=== PATIENT | male | born 1975 | race Caucasian/White ===

== ENCOUNTER 2018-01-27 08:03 | Observation (INO) ==
[2018-01-27 08:46] LABS: Basophils # 0.1 10*3/uL (0.0-0.2); Basophils % 1.3 % (0.0-0.8); Eosinophils % 10.6 % (0.00-10.9); Hematocrit 45.6 VOL% (42.0-52.0); Hemoglobin 15.7 GM/DL (14.0-18.0); Immature Granulocytes % 1.3 %; Immature Granulocytes Absolute 0.12 #; Lymphocytes # 1.9 10*3/uL (1.4-4.0); Mean Corpuscular HGB Conc 34.4 GM/DL (32-36); Mean Corpuscular Hemoglobin 31 PG (27-34); Mean Corpuscular Volume 90.5 FL (87-102); Mean Platelet Volume 10.4 FL (9.6-12.0); Monocytes % 10.3 % (1.7-12.7); Neutrophils # 5.2 10*3/uL (1.4-7.4); Neutrophils % 56.5 % (38.7-73.9); Platelet Count 254 T/CUMM (130-400); Red Blood Count 5.04 MC/CUMM (3.8-5.5); Red Cell Distribution Width 13.2 % (9.3-17.3); White Blood Count 9.3 T/CUMM (4-12)
[2018-01-27 09:15] LABS: Albumin 3.9 G/DL (3.4-5.0); Bilirubin,Total 0.4 MG/DL (0.2-1.0); Osmolality,Calculated 278.5 MOS/KG (273-304); Potassium 4.6 MMOL/L (3.5-5.1); Total Protein 8.1 G/DL (6.4-8.3)
[2018-01-27 09:32] LABS: Apearance,Urine CLEAR (Clear); Bilirubin,Urine Negative (Negative); Blood, Urine Negative (Negative); Glucose,Urine (UA) Negative (Negative); Ketones,Urine Negative (Negative); Nitrite,Urine Negative (Negative); Protein,Urine Negative; Urine Color Yellow (Yellow); Urine Specific Gravity 1.018 (1.001-1.035); Urine Urobilinogen < 2.0 EU/DL (0.2-1.0)
[2018-01-27 09:35] LABS: Mucus,Urine Occasional /LPF (Occasional); RBC,Urine 1 /HPF (0-4); WBC,Urine 2 /HPF (0-6)
[2018-01-27 10:51] LABS: Barbiturates Screen,Urine Negative (Negative); Benzodiazepines Screen,Urine Negative (Negative); Cannabinoid Screen,Urine Negative (Negative); Opiate Screen,Urine Negative (Negative); Phencyclidine Screen,Urine Negative (Negative)
[2018-01-28 05:13] LABS: Basophils # 0.1 10*3/uL (0.0-0.2); Basophils % 1.6 % (0.0-0.8); Eosinophils # 0.8 10*3/uL (0.0-0.87); Eosinophils % 10.7 % (0.00-10.9); Hemoglobin 15.1 GM/DL (14.0-18.0); Immature Granulocytes % 1.7 %; Immature Granulocytes Absolute 0.13 #; Lymphocytes # 1.7 10*3/uL (1.4-4.0); Lymphocytes % 22.6 % (21.2-54.2); Mean Corpuscular HGB Conc 34.3 GM/DL (32-36); Mean Corpuscular Hemoglobin 31 PG (27-34); Mean Corpuscular Volume 89.2 FL (87-102); Mean Platelet Volume 9.8 FL (9.6-12.0); Monocytes # 0.8 10*3/uL (0.11-0.8); Neutrophils # 4.1 10*3/uL (1.4-7.4); Neutrophils % 53.4 % (38.7-73.9); Platelet Count 251 T/CUMM (130-400); Red Blood Count 4.93 MC/CUMM (3.8-5.5); Red Cell Distribution Width 12.9 % (9.3-17.3); White Blood Count 7.7 T/CUMM (4-12)
[2018-01-28 05:37] LABS: Calcium 8.6 MG/DL (8.5-10.1); Osmolality,Calculated 276.5 MOS/KG (273-304)
[2018-01-30 10:54] VITALS: BP 134/86
== END 2018-01-30 10:47 | disposition home or self-care (01) ==
LOC: N.EDINP 08:03 → N.ED 08:03 → N.3E 14:07
PROVIDERS: ADMIT Surgery; ATTEND Surgery

== ENCOUNTER 2018-01-31 11:10 | Inpatient (IN) ==
[2018-01-31] MEDS ORDERED: PANTOPRAZOLE 40 MG VIAL IV STA (12:19)
[2018-01-31] MEDS ORDERED: SODIUM CHLORIDE 0.9% 1,000 ML IV STA (12:19)
[2018-01-31] MEDS ORDERED: ALUM/MAG/SIMETH/LIDO VISC 1:1 30 ML BOTTLE PO STA (12:19)
[2018-01-31] MEDS ORDERED: ONDANSETRON 4 MG/2 ML VIAL IV STA ×2 (12:19→16:10)
[2018-01-31] MEDS ORDERED: HYDROmorphone 2 MG/1 ML VIAL IV STA ×2 (12:19→16:10)
[2018-01-31 12:54] LABS: Basophils # 0.1 10*3/uL (0.0-0.2); Basophils % 1.4 % (0.0-0.8); Eosinophils # 0.7 10*3/uL (0.0-0.87); Eosinophils % 10.2 % (0.00-10.9); Hematocrit 43.8 VOL% (42.0-52.0); Hemoglobin 14.7 GM/DL (14.0-18.0); Immature Granulocytes % 1.3 %; Immature Granulocytes Absolute 0.09 #; Lymphocytes # 1.9 10*3/uL (1.4-4.0); Mean Corpuscular HGB Conc 33.6 GM/DL (32-36); Mean Corpuscular Hemoglobin 31 PG (27-34); Mean Corpuscular Volume 90.9 FL (87-102); Mean Platelet Volume 9.8 FL (9.6-12.0); Monocytes # 0.8 10*3/uL (0.11-0.8); Monocytes % 11.4 % (1.7-12.7); Neutrophils # 3.4 10*3/uL (1.4-7.4); Neutrophils % 48.7 % (38.7-73.9); Platelet Count 222 T/CUMM (130-400); Red Blood Count 4.82 MC/CUMM (3.8-5.5)
[2018-01-31 13:12] LABS: Lactic Acid 1.3 MMOL/L (0.4-2.0)
[2018-01-31 13:15] LABS: Alanine Aminotransferase 29 U/L (16-61); Albumin 3.9 G/DL (3.4-5.0); Alkaline Phosphatase 56 U/L (45-117); Amylase 39 U/L (25-115); Aspartate Amino Transferase 25 U/L (0-37); Bilirubin,Total < 0.39 MG/DL (0.2-1.0); Blood Urea Nitrogen 9 MG/DL (7-18); Calcium 8.6 MG/DL (8.5-10.1); Glucose 90 MG/DL (74-106); Osmolality,Calculated 279.3 MOS/KG (273-304); Potassium 3.9 MMOL/L (3.5-5.1); Sodium 141 MMOL/L (136-145); Total Protein 7.7 G/DL (6.4-8.3); Troponin I Only < 0.015 NG/ML (0.00-0.045)
[2018-01-31 14:49] LABS: Apearance,Urine CLEAR (Clear); Bilirubin,Urine Negative (Negative); Blood, Urine Negative (Negative); Glucose,Urine (UA) Negative (Negative); Ketones,Urine Negative (Negative); Mucus,Urine Occasional /LPF (Occasional); Nitrite,Urine Negative (Negative); Protein,Urine Negative; RBC,Urine <1 /HPF (0-4); Squamous Epithelial Cell,Urine Occasional /HPF (0-10); Urine Color Yellow (Yellow); Urine Specific Gravity 1.055 (1.001-1.035); Urine Urobilinogen < 2.0 EU/DL (0.2-1.0); WBC,Urine 2 /HPF (0-6)
[2018-01-31 15:07] LABS: Barbiturates Screen,Urine Negative (Negative); Benzodiazepines Screen,Urine Negative (Negative); Cannabinoid Screen,Urine Negative (Negative); Opiate Screen,Urine Positive (Negative); Phencyclidine Screen,Urine Negative (Negative)
[2018-01-31] MEDS: ENOXAPARIN 40 MG/0.4 ML SYRINGE SUBCUT SCH (17:50)
[2018-01-31] MEDS: DEXTROSE 5% NACL 0.45% 1,000 ML IV SCH (18:01)
[2018-01-31] MEDS: MORPHINE 4 MG/1 ML VIAL IV PRN (20:44)
[2018-01-31] MEDS: ONDANSETRON 4 MG/2 ML VIAL IV PRN (20:44)
[2018-01-31] MEDS: DIVALPROEX 500 MG TABLET PO SCH (20:44)
[2018-02-01] MEDS: DEXTROSE 5% NACL 0.45% 1,000 ML IV SCH (02:05)
[2018-02-01 05:14] LABS: Basophils # 0.1 10*3/uL (0.0-0.2); Basophils % 1.6 % (0.0-0.8); Eosinophils # 0.6 10*3/uL (0.0-0.87); Eosinophils % 9.1 % (0.00-10.9); Hematocrit 41.4 VOL% (42.0-52.0); Hemoglobin 14.1 GM/DL (14.0-18.0); Immature Granulocytes % 0.9 %; Immature Granulocytes Absolute 0.06 #; Lymphocytes % 29.4 % (21.2-54.2); Mean Corpuscular HGB Conc 34.1 GM/DL (32-36); Mean Corpuscular Hemoglobin 31 PG (27-34); Mean Corpuscular Volume 90.2 FL (87-102); Mean Platelet Volume 9.7 FL (9.6-12.0); Monocytes # 0.6 10*3/uL (0.11-0.8); Neutrophils # 3.4 10*3/uL (1.4-7.4); Platelet Count 222 T/CUMM (130-400); Red Blood Count 4.59 MC/CUMM (3.8-5.5); White Blood Count 6.8 T/CUMM (4-12)
[2018-02-01 06:01] LABS: Calcium 8.3 MG/DL (8.5-10.1); Potassium 4.3 MMOL/L (3.5-5.1)
[2018-02-01] MEDS: DIVALPROEX 250 MG TABLET PO SCH (08:19)
[2018-02-01] MEDS: SERTRALINE 100 MG TABLET PO SCH (08:19)
[2018-02-01] MEDS: PANTOPRAZOLE 40 MG VIAL IV SCH (08:19)
[2018-02-01] MEDS: ATORVASTATIN 80 MG TABLET PO SCH (08:19)
[2018-02-01] MEDS: MORPHINE 4 MG/1 ML VIAL IV PRN ×2 (08:20→20:46)
[2018-02-01] MEDS: ONDANSETRON 4 MG/2 ML VIAL IV PRN ×2 (08:20→20:47)
[2018-02-01] MEDS: ENOXAPARIN 40 MG/0.4 ML SYRINGE SUBCUT SCH (16:19)
[2018-02-01] MEDS: DIVALPROEX 500 MG TABLET PO SCH (20:46)
[2018-02-01] MEDS ORDERED: LORazepam 1 MG TABLET PO PRN (22:28)
[2018-02-01] MEDS ORDERED: LORazepam 2 MG/1 ML VIAL IV ONE (23:46)
[2018-02-01] MEDS ORDERED: LORazepam 2 MG/1 ML VIAL ONE (23:52)
[2018-02-02] MEDS: DEXTROSE 5% NACL 0.45% 1,000 ML IV SCH ×4 (00:05→20:47)
[2018-02-02] MEDS: ONDANSETRON 4 MG/2 ML VIAL IV PRN ×2 (00:06→20:48)
[2018-02-02] MEDS: SERTRALINE 100 MG TABLET PO SCH (08:06)
[2018-02-02] MEDS: PANTOPRAZOLE 40 MG VIAL IV SCH (08:06)
[2018-02-02] MEDS: DIVALPROEX 250 MG TABLET PO SCH (08:06)
[2018-02-02] MEDS: ATORVASTATIN 80 MG TABLET PO SCH (08:06)
[2018-02-02] MEDS ORDERED: MORPHINE 4 MG/1 ML VIAL IV PRN (10:25)
[2018-02-02] MEDS: ENOXAPARIN 40 MG/0.4 ML SYRINGE SUBCUT SCH (16:25)
[2018-02-02] MEDS: DIVALPROEX 500 MG TABLET PO SCH (20:47)
[2018-02-03] MEDS: DEXTROSE 5% NACL 0.45% 1,000 ML IV SCH ×2 (04:38→16:41)
[2018-02-03] MEDS ORDERED: fentaNYL 100 MCG/2 ML VIAL ONE (11:08)
[2018-02-03] MEDS ORDERED: LIDOCAINE 100 MG/5 ML SYRINGE ONE (12:00)
[2018-02-03] MEDS ORDERED: PROPOFOL 200 MG/20 ML VIAL IV ONE (12:00)
[2018-02-03] MEDS: PANTOPRAZOLE 40 MG VIAL IV SCH (12:52)
[2018-02-03] MEDS: SERTRALINE 100 MG TABLET PO SCH (12:53)
[2018-02-03] MEDS: DIVALPROEX 250 MG TABLET PO SCH (12:53)
[2018-02-03] MEDS: ATORVASTATIN 80 MG TABLET PO SCH ×2 (12:58→20:12)
[2018-02-03] MEDS: ENOXAPARIN 40 MG/0.4 ML SYRINGE SUBCUT SCH (16:40)
[2018-02-03] MEDS: ONDANSETRON 4 MG/2 ML VIAL IV PRN (19:50)
[2018-02-03] MEDS: DIVALPROEX 500 MG TABLET PO SCH (20:11)
[2018-02-03] MEDS ORDERED: PROMETHAZINE 25 MG/1 ML VIAL IM ONE (22:30)
[2018-02-04] MEDS: DEXTROSE 5% NACL 0.45% 1,000 ML IV SCH ×3 (01:04→17:51)
[2018-02-04] MEDS: DIVALPROEX 250 MG TABLET PO SCH (09:45)
[2018-02-04] MEDS: SERTRALINE 100 MG TABLET PO SCH (09:46)
[2018-02-04] MEDS: PANTOPRAZOLE 40 MG VIAL IV SCH (09:47)
[2018-02-04] MEDS ORDERED: LOPERAMIDE 2 MG CAPSULE PO PRN (10:17)
[2018-02-04] MEDS: ENOXAPARIN 40 MG/0.4 ML SYRINGE SUBCUT SCH (17:35)
[2018-02-04] MEDS: METOCLOPRAMIDE 10 MG/2 ML VIAL IV SCH (17:35)
[2018-02-04] MEDS: DIVALPROEX 500 MG TABLET PO SCH (20:53)
[2018-02-04] MEDS: ATORVASTATIN 80 MG TABLET PO SCH (20:53)
[2018-02-05] MEDS: METOCLOPRAMIDE 10 MG/2 ML VIAL IV SCH ×2 (02:04→07:12)
[2018-02-05] MEDS: DEXTROSE 5% NACL 0.45% 1,000 ML IV SCH ×2 (02:05→09:26)
[2018-02-05 05:25] LABS: Basophils # 0.1 10*3/uL (0.0-0.2); Basophils % 1.4 % (0.0-0.8); Eosinophils # 0.9 10*3/uL (0.0-0.87); Eosinophils % 10.8 % (0.00-10.9); Hematocrit 43.3 VOL% (42.0-52.0); Hemoglobin 14.7 GM/DL (14.0-18.0); Immature Granulocytes % 1.2 %; Lymphocytes # 2.7 10*3/uL (1.4-4.0); Lymphocytes % 32.3 % (21.2-54.2); Mean Corpuscular HGB Conc 33.9 GM/DL (32-36); Mean Corpuscular Hemoglobin 31 PG (27-34); Mean Corpuscular Volume 89.8 FL (87-102); Mean Platelet Volume 10.1 FL (9.6-12.0); Monocytes % 11.8 % (1.7-12.7); Neutrophils # 3.5 10*3/uL (1.4-7.4); Neutrophils % 42.5 % (38.7-73.9); Platelet Count 263 T/CUMM (130-400); Red Blood Count 4.82 MC/CUMM (3.8-5.5); Red Cell Distribution Width 12.9 % (9.3-17.3); White Blood Count 8.3 T/CUMM (4-12)
[2018-02-05 06:01] LABS: Calcium 8.4 MG/DL (8.5-10.1)
[2018-02-05 07:20] VITALS: BP 137/82
[2018-02-05] MEDS: SERTRALINE 100 MG TABLET PO SCH (09:21)
[2018-02-05] MEDS: PANTOPRAZOLE 40 MG VIAL IV SCH (09:21)
[2018-02-05] MEDS: DIVALPROEX 250 MG TABLET PO SCH (09:22)
[2018-02-05] MEDS ORDERED: METOCLOPRAMIDE 10 MG TABLET PO SCH (11:30)
== END 2018-02-05 14:42 | disposition home or self-care (01) | DRG 392 ==
LOC: N.ED 11:10 → N.EDINP 16:52 → SUATTDRO 16:52 → N.5E 17:29
PROVIDERS: ADMIT Internal Medicine Geriatric Medicine; ATTEND Internal Medicine

== ENCOUNTER 2018-02-20 15:54 | Inpatient (IN) ==
[2018-02-20] MEDS ORDERED: ONDANSETRON 4 MG/2 ML VIAL IV STA (17:16)
[2018-02-20] MEDS ORDERED: HYDROmorphone 2 MG/1 ML VIAL IV STA (17:16)
[2018-02-20] MEDS ORDERED: PANTOPRAZOLE 40 MG VIAL IV STA (17:16)
[2018-02-20 17:39] LABS: Basophils # 0.1 10*3/uL (0.0-0.2); Basophils % 1.1 % (0.0-0.8); Eosinophils # 0.9 10*3/uL (0.0-0.87); Eosinophils % 8.5 % (0.00-10.9); Hematocrit 41.8 VOL% (42.0-52.0); Hemoglobin 14.2 GM/DL (14.0-18.0); Immature Granulocytes % 0.9 %; Immature Granulocytes Absolute 0.09 #; Lymphocytes # 1.8 10*3/uL (1.4-4.0); Lymphocytes % 17.6 % (21.2-54.2); Mean Corpuscular Hemoglobin 31 PG (27-34); Mean Corpuscular Volume 91.9 FL (87-102); Mean Platelet Volume 10.8 FL (9.6-12.0); Monocytes # 1.1 10*3/uL (0.11-0.8); Monocytes % 10.9 % (1.7-12.7); Neutrophils # 6.4 10*3/uL (1.4-7.4); Platelet Count 225 T/CUMM (130-400); Red Blood Count 4.55 MC/CUMM (3.8-5.5); Red Cell Distribution Width 13.1 % (9.3-17.3); White Blood Count 10.4 T/CUMM (4-12)
[2018-02-20 17:54] LABS: Apearance,Urine CLEAR (Clear); Bilirubin,Urine Negative (Negative); Blood, Urine Negative (Negative); Glucose,Urine (UA) Negative (Negative); Ketones,Urine Negative (Negative); Mucus,Urine Occasional /LPF (Occasional); Nitrite,Urine Negative (Negative); Protein,Urine Negative; RBC,Urine 2 /HPF (0-4); Urine Color Yellow (Yellow); Urine Specific Gravity 1.011 (1.001-1.035); Urine Urobilinogen < 2.0 EU/DL (0.2-1.0); WBC,Urine 1 /HPF (0-6)
[2018-02-20] MEDS ORDERED: MORPHINE 4 MG/1 ML VIAL IV STA (18:22)
[2018-02-20 18:47] LABS: Alanine Aminotransferase 26 U/L (16-61); Albumin 3.8 G/DL (3.4-5.0); Alkaline Phosphatase 57 U/L (45-117); Amylase 47 U/L (25-115); Aspartate Amino Transferase 16 U/L (0-37); Bilirubin,Total < 0.39 MG/DL (0.2-1.0); Blood Urea Nitrogen 8 MG/DL (7-18); Calcium 8.8 MG/DL (8.5-10.1); Glucose 111 MG/DL (74-106); Osmolality,Calculated 277.4 MOS/KG (273-304); Potassium 3.8 MMOL/L (3.5-5.1); Sodium 140 MMOL/L (136-145); Total Protein 7.6 G/DL (6.4-8.3); Troponin I Only < 0.015 NG/ML (0.00-0.045)
[2018-02-20 18:54] LABS: Lactic Acid 1.2 MMOL/L (0.4-2.0)
[2018-02-20] MEDS ORDERED: ACETAMINOPHEN 325 MG TABLET PO PRN (21:25)
[2018-02-20] MEDS ORDERED: ONDANSETRON 4 MG/2 ML VIAL IV PRN (21:25)
[2018-02-20] MEDS: METOCLOPRAMIDE 10 MG TABLET PO SCH (21:57)
[2018-02-20] MEDS: ATORVASTATIN 80 MG TABLET PO SCH (21:57)
[2018-02-20] MEDS: DIVALPROEX 250 MG TABLET PO SCH (21:57)
[2018-02-20] MEDS: SODIUM CHLORIDE 0.9% 1,000 ML IV SCH (21:59)
[2018-02-20] MEDS: metroNIDAZOLE INJ 500 MG in PREMIX 1 EACH IV SCH (22:02)
[2018-02-20] MEDS: LEVOFLOXACIN INJ 500 MG in PREMIX 1 EACH IV SCH (23:47)
[2018-02-21 04:57] LABS: Basophils # 0.1 10*3/uL (0.0-0.2); Basophils % 1.2 % (0.0-0.8); Eosinophils # 0.9 10*3/uL (0.0-0.87); Eosinophils % 10.5 % (0.00-10.9); Hematocrit 39.7 VOL% (42.0-52.0); Hemoglobin 13.6 GM/DL (14.0-18.0); Immature Granulocytes % 1.5 %; Immature Granulocytes Absolute 0.13 #; Mean Corpuscular HGB Conc 34.3 GM/DL (32-36); Mean Corpuscular Hemoglobin 31 PG (27-34); Mean Platelet Volume 10.8 FL (9.6-12.0); Monocytes # 0.9 10*3/uL (0.11-0.8); Monocytes % 10.7 % (1.7-12.7); Neutrophils # 4.4 10*3/uL (1.4-7.4); Neutrophils % 52.1 % (38.7-73.9); Platelet Count 199 T/CUMM (130-400); Red Blood Count 4.41 MC/CUMM (3.8-5.5); Red Cell Distribution Width 13.2 % (9.3-17.3); White Blood Count 8.5 T/CUMM (4-12)
[2018-02-21] MEDS: metroNIDAZOLE INJ 500 MG in PREMIX 1 EACH IV SCH ×3 (05:02→21:27)
[2018-02-21 05:04] LABS: PT Patient Result 10.3 SECS
[2018-02-21 05:25] LABS: Calcium 8.2 MG/DL (8.5-10.1); Osmolality,Calculated 279.1 MOS/KG (273-304); Potassium 3.5 MMOL/L (3.5-5.1)
[2018-02-21] MEDS: SERTRALINE 50 MG TABLET PO SCH (09:29)
[2018-02-21] MEDS: PANTOPRAZOLE 40 MG TABLET PO SCH (09:30)
[2018-02-21] MEDS: METOCLOPRAMIDE 10 MG TABLET PO SCH ×4 (09:30→20:40)
[2018-02-21] MEDS: DIVALPROEX 250 MG TABLET PO SCH ×2 (09:30→20:40)
[2018-02-21] MEDS: SODIUM CHLORIDE 0.9% 1,000 ML IV SCH ×2 (09:30→17:29)
[2018-02-21] MEDS: POLYETHYLENE GLYCOL POWDER 17 GM PACK PO SCH ×3 (13:32→20:38)
[2018-02-21] MEDS: HYDROCORTISONE 25 MG SUPP RECTAL SCH ×2 (17:31→20:41)
[2018-02-21] MEDS: ATORVASTATIN 80 MG TABLET PO SCH (20:40)
[2018-02-22] MEDS: LEVOFLOXACIN INJ 500 MG in PREMIX 1 EACH IV SCH ×2 (00:21→23:25)
[2018-02-22] MEDS: SODIUM CHLORIDE 0.9% 1,000 ML IV SCH ×3 (00:21→23:26)
[2018-02-22 05:33] LABS: Basophils # 0.1 10*3/uL (0.0-0.2); Basophils % 1.2 % (0.0-0.8); Eosinophils # 0.9 10*3/uL (0.0-0.87); Hematocrit 38.9 VOL% (42.0-52.0); Hemoglobin 13.3 GM/DL (14.0-18.0); Immature Granulocytes % 1.2 %; Lymphocytes # 1.9 10*3/uL (1.4-4.0); Lymphocytes % 22.7 % (21.2-54.2); Mean Corpuscular HGB Conc 34.2 GM/DL (32-36); Mean Corpuscular Hemoglobin 31 PG (27-34); Mean Corpuscular Volume 89.8 FL (87-102); Mean Platelet Volume 10.4 FL (9.6-12.0); Monocytes # 0.7 10*3/uL (0.11-0.8); Monocytes % 8.9 % (1.7-12.7); Neutrophils # 4.6 10*3/uL (1.4-7.4); Platelet Count 219 T/CUMM (130-400); Red Blood Count 4.33 MC/CUMM (3.8-5.5); Red Cell Distribution Width 12.7 % (9.3-17.3); White Blood Count 8.3 T/CUMM (4-12)
[2018-02-22] MEDS: metroNIDAZOLE INJ 500 MG in PREMIX 1 EACH IV SCH ×3 (05:49→21:16)
[2018-02-22 06:35] LABS: Eosinophils 12 % (0-10); Lymphocytes 18 % (20-55); Segmented Neutrophils 67 % (50-85); Total Cells Counted 100
[2018-02-22 06:36] LABS: Hypochromasia Slight; Microcytosis 1+; Platelet Estimate Normal
[2018-02-22] MEDS: POLYETHYLENE GLYCOL POWDER 17 GM PACK PO SCH ×4 (09:07→21:16)
[2018-02-22] MEDS: SERTRALINE 50 MG TABLET PO SCH (09:08)
[2018-02-22] MEDS: PANTOPRAZOLE 40 MG TABLET PO SCH (09:09)
[2018-02-22] MEDS: HYDROCORTISONE 25 MG SUPP RECTAL SCH ×3 (09:09→21:16)
[2018-02-22] MEDS: METOCLOPRAMIDE 10 MG TABLET PO SCH ×4 (09:09→21:15)
[2018-02-22] MEDS: DIVALPROEX 250 MG TABLET PO SCH ×2 (09:09→21:15)
[2018-02-22] MEDS: ATORVASTATIN 80 MG TABLET PO SCH (21:15)
[2018-02-23] MEDS: metroNIDAZOLE INJ 500 MG in PREMIX 1 EACH IV SCH (05:12)
[2018-02-23 05:41] LABS: Basophils # 0.1 10*3/uL (0.0-0.2); Basophils % 1.3 % (0.0-0.8); Eosinophils # 0.9 10*3/uL (0.0-0.87); Eosinophils % 12.4 % (0.00-10.9); Hematocrit 39.1 VOL% (42.0-52.0); Hemoglobin 13.8 GM/DL (14.0-18.0); Immature Granulocytes % 0.9 %; Immature Granulocytes Absolute 0.07 #; Lymphocytes # 1.8 10*3/uL (1.4-4.0); Lymphocytes % 24.3 % (21.2-54.2); Mean Corpuscular HGB Conc 35.3 GM/DL (32-36); Mean Corpuscular Hemoglobin 31 PG (27-34); Mean Corpuscular Volume 89.1 FL (87-102); Mean Platelet Volume 10.4 FL (9.6-12.0); Monocytes # 0.8 10*3/uL (0.11-0.8); Monocytes % 10.4 % (1.7-12.7); Neutrophils # 3.8 10*3/uL (1.4-7.4); Neutrophils % 50.7 % (38.7-73.9); Platelet Count 216 T/CUMM (130-400); Red Blood Count 4.39 MC/CUMM (3.8-5.5); Red Cell Distribution Width 12.9 % (9.3-17.3); White Blood Count 7.6 T/CUMM (4-12)
[2018-02-23 06:19] LABS: Eosinophils 17 % (0-10); Lymphocytes 30 % (20-55); Microcytosis 1+; Segmented Neutrophils 49 % (50-85); Total Cells Counted 100
[2018-02-23 06:20] LABS: Hypochromasia Slight; Platelet Estimate Normal
[2018-02-23] MEDS: METOCLOPRAMIDE 10 MG TABLET PO SCH ×2 (09:11→12:09)
[2018-02-23] MEDS: SERTRALINE 50 MG TABLET PO SCH (09:11)
[2018-02-23] MEDS: DIVALPROEX 250 MG TABLET PO SCH (09:12)
[2018-02-23] MEDS: PANTOPRAZOLE 40 MG TABLET PO SCH (09:12)
[2018-02-23] MEDS: HYDROCORTISONE 25 MG SUPP RECTAL SCH (09:12)
[2018-02-23] MEDS: POLYETHYLENE GLYCOL POWDER 17 GM PACK PO SCH ×2 (09:12→14:41)
[2018-02-23] MEDS: SODIUM CHLORIDE 0.9% 1,000 ML IV SCH ×2 (09:14→11:37)
[2018-02-23 11:44] VITALS: BP 136/91
== END 2018-02-23 15:44 | disposition home or self-care (01) | DRG 395 ==
LOC: N.ED 15:54 → N.EDINP 20:05 → SUATTDRO 20:05 → N.4E 20:33
PROVIDERS: ADMIT Internal Medicine; ATTEND Family Medicine

== ENCOUNTER 2022-01-07 20:30 | Observation (INO) ==
[2022-01-07] MEDS ORDERED: SODIUM CHLORIDE 0.9% 1,000 ML IV STA (22:21)
[2022-01-07 22:51] LABS: Basophils # 0.1 10*3/uL (0.0-0.2); Eosinophils # 0.2 10*3/uL (0.0-0.87); Eosinophils % 3.6 % (0.00-10.9); Hematocrit 40.9 VOL% (42.0-52.0); Hemoglobin 13.5 GM/DL (14.0-18.0); Immature Granulocytes % 2.1 %; Immature Granulocytes Absolute 0.13 #; Lymphocytes # 2.1 10*3/uL (1.4-4.0); Lymphocytes % 34.7 % (21.2-54.2); Mean Corpuscular Volume 93.8 FL (87-102); Mean Platelet Volume 9.5 FL (9.6-12.0); Monocytes # 0.9 10*3/uL (0.11-0.8); Monocytes % 15.4 % (1.7-12.7); Neutrophils % 43.2 % (38.7-73.9); Platelet Count 175 T/CUMM (130-400); Red Blood Count 4.36 MC/CUMM (3.8-5.5); Red Cell Distribution Width 12.9 % (9.3-17.3); White Blood Count 6.1 T/CUMM (4-12)
[2022-01-07] MEDS ORDERED: ASPIRIN 325 MG TABLET PO STA (23:00)
[2022-01-07 23:20] LABS: Bacteria,Urine Occasional /HPF (Few); Bilirubin,Urine Negative (Negative); Blood, Urine Negative (Negative); Glucose,Urine (UA) >1000 mg/dL (Negative); Ketones,Urine 15 mg/dL (Negative); Mucus,Urine Occasional /LPF (Occasional); Nitrite,Urine Negative (Negative); Protein,Urine Negative (Negative); RBC,Urine <1 /HPF (0-4); Squamous Epithelial Cell,Urine Occasional /HPF (0-10); Urine Appearance Clear (Clear); Urine Color Yellow (Yellow); Urine Specific Gravity 1.025 (1.001-1.035); Urine pH 6.5 (4.5-8.0)
[2022-01-07 23:36] LABS: Alanine Aminotransferase 18 U/L (16-61); Albumin 3.4 G/DL (3.4-5.0); Alkaline Phosphatase 40 U/L (45-117); Aspartate Amino Transferase 12 U/L (0-37); Bilirubin,Total < 0.39 MG/DL (0.20-1.00); Blood Urea Nitrogen 19 MG/DL (7-18); Carbon Dioxide 27 MMOL/L (21-32); Chloride 105 MMOL/L (98-107); Estimated Glom Filtration Rate 138 ML/MIN; Glucose 179 MG/DL (74-106); Osmolality,Calculated 286.3 MOS/KG (273-304); Potassium 4.1 MMOL/L (3.5-5.1); Sodium 141 MMOL/L (136-145); Total Protein 6.9 G/DL (6.4-8.2)
[2022-01-07] MEDS ORDERED: ONDANSETRON 4 MG/2 ML VIAL IV ONE (23:36)
[2022-01-07] MEDS ORDERED: ALUM/MAG/SIMETH/LIDO VISC 1:1 30 ML BOTTLE PO STA (23:36)
[2022-01-08] MEDS ORDERED: guaiFENesin/DM ER 600-30 MG TABLET PO PRN (00:28)
[2022-01-08] MEDS ORDERED: ZALEPLON 5 MG CAPSULE PO PRN (00:28)
[2022-01-08] MEDS ORDERED: diphenhydrAMINE CAP 25 MG CAPSULE PO PRN (00:28)
[2022-01-08] MEDS ORDERED: DEXTROSE 50% 25 GM/50 ML VIAL IV PRN (00:28)
[2022-01-08] MEDS ORDERED: GLUCAGON 1 MG VIAL IM PRN ×2 (00:28)
[2022-01-08] MEDS ORDERED: NICOTINE 21 MG/24 HR PATCH TRANSDERM PRN (00:28)
[2022-01-08] MEDS ORDERED: hydrALAZINE 20 MG/1 ML VIAL IV PRN (00:28)
[2022-01-08] MEDS ORDERED: MORPHINE 2 MG/1 ML SYRINGE IV PRN (00:28)
[2022-01-08] MEDS ORDERED: ONDANSETRON 4 MG/2 ML VIAL IV PRN (00:28)
[2022-01-08] MEDS ORDERED: DEXTROSE 10% 250 ML BAG IV PRN (00:35)
[2022-01-08] MEDS ORDERED: ENOXAPARIN 40 MG/0.4 ML SYRINGE SUBCUT SCH (01:00)
[2022-01-08] MEDS: ACETAMINOPHEN 325 MG TABLET PO PRN ×3 (01:11→11:14)
[2022-01-08] MEDS: INSULIN LISPRO 100 UNIT/ML SUBCUT SCH ×3 (02:16→11:16)
[2022-01-08 05:29] LABS: Basophils # 0.1 10*3/uL (0.0-0.2); Basophils % 1.3 % (0.0-0.8); Eosinophils # 0.2 10*3/uL (0.0-0.87); Hemoglobin 12.7 GM/DL (14.0-18.0); Immature Granulocytes % 2.2 %; Immature Granulocytes Absolute 0.13 #; Lymphocytes # 2.7 10*3/uL (1.4-4.0); Lymphocytes % 43.9 % (21.2-54.2); Mean Corpuscular HGB Conc 32.6 GM/DL (32-36); Mean Corpuscular Volume 95.6 FL (87-102); Mean Platelet Volume 9.9 FL (9.6-12.0); Monocytes # 0.8 10*3/uL (0.11-0.8); Monocytes % 13.6 % (1.7-12.7); Platelet Count 142 T/CUMM (130-400); Red Blood Count 4.08 MC/CUMM (3.8-5.5); Red Cell Distribution Width 12.8 % (9.3-17.3)
[2022-01-08 05:49] LABS: Calcium 8.4 MG/DL (8.5-10.1); Osmolality,Calculated 284.1 MOS/KG (273-304); Potassium 3.7 MMOL/L (3.5-5.1)
[2022-01-08 05:54] LABS: Band Neutrophils 1 % (0-10); Eosinophils 2 % (0-10); Lymphocytes 40 % (20-55); Total Cells Counted 100
[2022-01-08 05:55] LABS: Platelet Estimate Adequate
[2022-01-08] MEDS ORDERED: PANTOPRAZOLE 40 MG TABLET PO SCH (09:00)
[2022-01-08] MEDS ORDERED: GABAPENTIN 600 MG TABLET PO SCH (09:00)
[2022-01-08] MEDS ORDERED: DIVALPROEX 500 MG TABLET PO SCH ×2 (09:00)
[2022-01-08] MEDS ORDERED: ROSUVASTATIN 10 MG TABLET PO SCH (09:00)
[2022-01-08] MEDS ORDERED: MORPHINE 4 MG/1 ML VIAL IV PRN (09:06)
[2022-01-08] MEDS ORDERED: CLOTRIMAZOLE 1% CREAM 15 GM TUBE TOP SCH ×2 (11:00→21:00)
[2022-01-08 12:11] VITALS: BP 131/84
== END 2022-01-08 14:15 | disposition home or self-care (01) ==
LOC: N.EDINP 20:30 → N.ED 20:30 → N.5E 01-08 03:01
PROVIDERS: ADMIT Internal Medicine; ATTEND Internal Medicine

== ENCOUNTER 2022-01-21 19:16 | Observation (INO) ==
[2022-01-21] MEDS ORDERED: SODIUM CHLORIDE 0.9% 1,000 ML IV STA (20:01)
[2022-01-21 20:34] LABS: ABG Base Excess 2.4 MMOL/L (-2.5-2.5); ABG HCO3 26.4 MMOL/L (20-26); ABG Oxygen Saturation 94.7 % (95-100); ABG PCO2 41.8 MM HG (35-48); ABG PO2 74.8 MM HG (80-95); ABG TCO2 23.5 MMOL/L (23-27)
[2022-01-21 20:48] LABS: Basophils # 0.1 10*3/uL (0.0-0.2); Basophils % 1.1 % (0.0-0.8); Eosinophils # 0.2 10*3/uL (0.0-0.87); Eosinophils % 3.7 % (0.00-10.9); Hematocrit 39.8 VOL% (42.0-52.0); Hemoglobin 13.3 GM/DL (14.0-18.0); Immature Granulocytes % 1.5 %; Immature Granulocytes Absolute 0.07 #; Lymphocytes # 1.5 10*3/uL (1.4-4.0); Mean Corpuscular HGB Conc 33.4 GM/DL (32-36); Mean Corpuscular Volume 92.8 FL (87-102); Mean Platelet Volume 10.1 FL (9.6-12.0); Monocytes # 0.8 10*3/uL (0.11-0.8); Monocytes % 18.2 % (1.7-12.7); Neutrophils % 42.5 % (38.7-73.9); Platelet Count 159 T/CUMM (130-400); Red Blood Count 4.29 MC/CUMM (3.8-5.5); Red Cell Distribution Width 12.6 % (9.3-17.3); White Blood Count 4.6 T/CUMM (4-12)
[2022-01-21 21:04] LABS: PT Patient Result 10.9 SECS (10.5-12.0); Partial Thromboplastin Time 25.4 SECS (23.8-32.1)
[2022-01-21 21:07] LABS: Alanine Aminotransferase 20 U/L (16-61); Albumin 3.7 G/DL (3.4-5.0); Alkaline Phosphatase 50 U/L (45-117); Aspartate Amino Transferase 17 U/L (0-37); Bilirubin,Total < 0.39 MG/DL (0.20-1.00); Blood Urea Nitrogen 9 MG/DL (7-18); Calcium 8.6 MG/DL (8.5-10.1); Carbon Dioxide 28 MMOL/L (21-32); Chloride 106 MMOL/L (98-107); Estimated Glom Filtration Rate 145 ML/MIN; Glucose 300 MG/DL (74-106); Osmolality,Calculated 288.4 MOS/KG (273-304); Potassium 4.1 MMOL/L (3.5-5.1); Sodium 140 MMOL/L (136-145); Total Protein 7.3 G/DL (6.4-8.2)
[2022-01-21 21:08] LABS: Bilirubin,Urine Negative (Negative); Blood, Urine Negative (Negative); Glucose,Urine (UA) 500 mg/dL (Negative); Ketones,Urine Negative (Negative); Nitrite,Urine Negative (Negative); Protein,Urine Negative (Negative); Urine Appearance Clear (Clear); Urine Color Light Yellow (Yellow)
[2022-01-21 21:09] LABS: RBC,Urine 1 /HPF (0-4)
[2022-01-21] MEDS ORDERED: MORPHINE 2 MG/1 ML SYRINGE IV STA (21:12)
[2022-01-21] MEDS ORDERED: NITROGLYCERIN SL 0.4 MG TABLET SL STA ×2 (21:12→22:32)
[2022-01-21] MEDS ORDERED: ONDANSETRON 4 MG/2 ML VIAL IV ONE (21:12)
[2022-01-21] MEDS ORDERED: ASPIRIN 325 MG TABLET PO STA (21:15)
[2022-01-21 21:16] LABS: Band Neutrophils 1 % (0-10); Eosinophils 2 % (0-10); Lymphocytes 39 % (20-55); Total Cells Counted 100
[2022-01-21 21:17] LABS: Platelet Estimate Adequate; Polychromasia Slight
[2022-01-21] MEDS ORDERED: SODIUM CHLORIDE 0.9% 2,000 ML IV STA (21:44)
[2022-01-21] MEDS ORDERED: guaiFENesin/DM ER 600-30 MG TABLET PO PRN (22:20)
[2022-01-21] MEDS ORDERED: diphenhydrAMINE CAP 25 MG CAPSULE PO PRN (22:20)
[2022-01-21] MEDS ORDERED: NICOTINE 21 MG/24 HR PATCH TRANSDERM PRN (22:20)
[2022-01-21] MEDS ORDERED: ACETAMINOPHEN 325 MG TABLET PO PRN (22:20)
[2022-01-21] MEDS ORDERED: DOCUSATE SODIUM 100 MG CAPSULE PO PRN (22:20)
[2022-01-21] MEDS ORDERED: ZALEPLON 5 MG CAPSULE PO PRN (22:20)
[2022-01-21] MEDS ORDERED: GLUCAGON 1 MG VIAL IM PRN ×2 (22:20)
[2022-01-21] MEDS ORDERED: hydrALAZINE 20 MG/1 ML VIAL IV PRN (22:20)
[2022-01-21] MEDS ORDERED: DEXTROSE 50% 25 GM/50 ML VIAL IV PRN (22:20)
[2022-01-21] MEDS ORDERED: ONDANSETRON 4 MG/2 ML VIAL IV PRN (22:20)
[2022-01-21] MEDS ORDERED: DEXTROSE 10% 250 ML BAG IV PRN (22:28)
[2022-01-21] MEDS: HEPARIN 5,000 UNIT/1 ML VIAL SUBCUT SCH (22:55)
[2022-01-22] MEDS: ALBUTEROL/IPRATROPIUM 3 ML NEB RESP TX SCH ×3 (01:07→13:59)
[2022-01-22] MEDS: INSULIN LISPRO 100 UNIT/ML SUBCUT SCH ×3 (07:38→16:54)
[2022-01-22] MEDS ORDERED: PANTOPRAZOLE 40 MG TABLET PO SCH (09:00)
[2022-01-22] MEDS: HEPARIN 5,000 UNIT/1 ML VIAL SUBCUT SCH (10:48)
[2022-01-22 11:04] LABS: Basophils % 0.9 % (0.0-0.8); Eosinophils # 0.2 10*3/uL (0.0-0.87); Eosinophils % 4.1 % (0.00-10.9); Hematocrit 39.7 VOL% (42.0-52.0); Immature Granulocytes % 1.1 %; Immature Granulocytes Absolute 0.05 #; Lymphocytes # 1.6 10*3/uL (1.4-4.0); Lymphocytes % 35.4 % (21.2-54.2); Mean Corpuscular HGB Conc 32.7 GM/DL (32-36); Mean Corpuscular Volume 94.7 FL (87-102); Mean Platelet Volume 9.8 FL (9.6-12.0); Monocytes # 0.6 10*3/uL (0.11-0.8); Monocytes % 13.8 % (1.7-12.7); Neutrophils % 44.7 % (38.7-73.9); Platelet Count 135 T/CUMM (130-400); Red Blood Count 4.19 MC/CUMM (3.8-5.5); Red Cell Distribution Width 12.7 % (9.3-17.3); White Blood Count 4.4 T/CUMM (4-12)
[2022-01-22 11:31] LABS: Calcium 8.2 MG/DL (8.5-10.1); Osmolality,Calculated 282.3 MOS/KG (273-304); Potassium 3.8 MMOL/L (3.5-5.1)
[2022-01-22] MEDS ORDERED: MAGNESIUM SULF RIDER 2 GM/50 ML PREMIX IV ONE (14:32)
[2022-01-22 16:28] VITALS: BP 131/88
[2022-01-23] MEDS ORDERED: ROSUVASTATIN 10 MG TABLET PO SCH (09:00)
== END 2022-01-22 16:40 | disposition home or self-care (01) ==
LOC: N.ED 19:16 → N.EDINP 19:16 → SUATTDRO 22:20 → N.CC 01-22 12:05
PROVIDERS: ADMIT Internal Medicine; ATTEND Internal Medicine Geriatric Medicine